=== PATIENT | male | born 1945 | race Caucasian/White ===

== ENCOUNTER → 2016-04-01 | Day surgery (SDC) | payer MEDICARE, OTHER ==
[~2016-04-01] MED LIST: ASCO500C PO; ASPI81TA50 PO; CALC-112 PO; CARV12.52 PO; CHOL10003 PO; CRESTOR40 MG PO; CYAN10005 PO; DOFE125C PO; FENTANYL PF 100 MCG/2 ML VIAL. IV PRN; FISH1CAP PO; FURO40TA4 PO; HYDROMORPHONE 2 MG/ML VIAL. IV PRN; IV RINGERS,LACTATED 1000ML 1,000 ML IV SCH; LIDOCAINE 1% 1 ML SYRINGE. ID PRN; LIDOCAINE 2% PF Vial for OR 5 ML VIAL. ONE; MORPHINE SULFATE 2 MG/ML DISP.SYRIN. IV PRN; MULT-658 PO; OMEP20CA9 PO; ONDANSETRON PF 4 MG/2 ML VIAL. IV PRN; PROCHLORPERAZINE 10 MG/2 ML VIAL. IV PRN; PROPOFOL 0 ML IV ONE; PROPOFOL 20 ML IV ONE; RAMI5CAP PO; SPIR25TA3 PO; WARF5TAB7 PO
[2016-04-01 09:20] VITALS: BP 104/78
== END | disposition home or self-care (01) ==
LOC: SURG 07:25
PROVIDERS: ATTEND Internal Medicine Gastroenterology
DX: K64.0 First degree hemorrhoids (principal); K29.50 Unspecified chronic gastritis without bleeding; K44.9 Diaphragmatic hernia without obstruction or gangrene; F41.9 Anxiety disorder, unspecified; F17.210 Nicotine dependence, cigarettes, uncomplicated; Z83.3 Family history of diabetes mellitus
CPT/HCPCS: 43235; 45378; J2704